=== PATIENT | male | born 1960 | race Caucasian/White ===

== ENCOUNTER 2018-04-28 19:13 | Emergency (ER) | payer SELFPAY ==
[~2018-04-28] VITALS: Ht 193 cm; Wt 78.0 kg
[2018-04-28] MEDS ORDERED: LIDOCAINE/EPINEPHR/TETRACAINE 3ML TP ONE (23:45)
[2018-04-28] MEDS ORDERED: BACITRACIN ZINC OINT UDPKT TOP ONE (23:45)
[2018-04-28] MEDS ORDERED: LIDOCAINE 1%/EPI 1:100,000 10 ML VIAL IJ ONE (23:45)
[2018-04-29] MEDS ORDERED: HYDROCODONE/ACETAMINOPHEN 5/325MG TABLET PO ONE (01:15)
[2018-04-29] MEDS ORDERED: IBUPROFEN 800MG TABLET PO ONE (01:15)
[2018-04-29 01:25] VITALS: BP 157/105
== END 2018-04-29 02:04 | disposition home or self-care (01) ==
LOC: ER 19:13
DX: L02.11 Cutaneous abscess of neck (principal); I10 Essential (primary) hypertension
CPT/HCPCS: 10060; 99284; J3490

== ENCOUNTER 2023-07-20 17:19 | Inpatient (IN) | payer OTHER ==
[~2023-07-20] VITALS: Ht 182.9 cm; Wt 78.5 kg
[2023-07-20 20:34] LABS: HEMATOCRIT. 27.3 % (42.0-52.0); HEMOGLOBIN. 8.4 g/dL (14.0-18.0); MEAN CORPUSCULAR HEMOGLOBIN 24.3 pg (28.0-32.0); MEAN CORPUSCULAR HGB CONC 30.9 g/dL (31.0-37.0); MEAN CORPUSCULAR VOLUME 78.9 fL (80.0-94.0); MEAN PLATELET VOLUME 6.8 fl (7.4-10.4); PLATELET 656 x1000/uL (130-400); RED BLOOD CELL COUNT 3.46 mill/uL (4.7-6.1); RED CELL DISTRIBUTION WIDTH 19.1 % (11.6-14.6); WHITE BLOOD COUNT 12.7 x1000/uL (4.5-11.0)
[2023-07-20 20:35] LABS: DIFFERENTIAL COMMENT 1
[2023-07-20 20:45] LABS: ALANINE AMINOTRANSFERASE 42 IU/L (10-49); ALBUMIN 4.1 g/dL (3.2-4.8); ASPARTATE AMINOTRANSFERASE 19 IU/L (<34); BILIRUBIN TOTAL 0.2 mg/dL (0.1-1.0); CALCIUM 9.1 mg/dL (8.7-10.4); CARBON DIOXIDE 21 mEq/L (21-32); CHLORIDE 105 mEq/L (98-107); CREATINE KINASE 82 IU/L (46-171); CREATININE 1.6 mg/dL (0.6-1.3); GLUCOSE 80 mg/dL (70-105); NUCLEATED RED BLOOD CELLS 1 /100 WBC; PLATELET ESTIMATE INCREASED; POTASSIUM 4.3 mEq/L (3.5-5.1); SODIUM 140 mEq/L (136-145); UREA NITROGEN BLOOD 47 mg/dL (9-23)
[2023-07-20 21:54] LABS: CLARITY URINE CLEAR (CLEAR); COLOR URINE YELLOW (YELLOW); GLUCOSE URINE NEGATIVE (NEGATIVE); KETONES URINE NEGATIVE (NEGATIVE); LEUKOCYTE ESTERASE URINE NEGATIVE (NEGATIVE); NITRITE URINE NEGATIVE (NEGATIVE); OCCULT BLOOD URINE TRACE (NEGATIVE); PH URINE 5.5 (4.5-8.0); PROTEIN URINE 1+ (NEGATIVE); SPECIFIC GRAVITY URINE 1.012 (1.005-1.030); UROBILINOGEN URINE 0.2 E.U./dL (0.2-1.0)
[2023-07-20] MEDS ORDERED: SODIUM CHLORIDE 0.9% 1,000 ML IV ONE (22:00)
[2023-07-20] MEDS ORDERED: CEFTRIAXONE 1GM PREMIX 50 ML IV NR (22:00)
[2023-07-20 22:06] LABS: BACTERIA URINE NONE SEEN; RBC URINE 0-2 /hpf (0-2); SQUAMOUS EPITHELIAL CELL URINE 1+ /lpf (RARE/1+); WBC URINE 0-2 /hpf (0-2)
[2023-07-20] MEDS ORDERED: ACETAMINOPHEN 325MG TABLET PO STA (22:43)
[2023-07-21] MEDS ORDERED: CLONIDINE 0.1MG TABLET PO PRN (02:30)
[2023-07-21] MEDS ORDERED: IBUPROFEN 600MG TABLET PO PRN (02:30)
[2023-07-21] MEDS ORDERED: ONDANSETRON HCL 4MG/2ML INJ IV PRN (02:30)
[2023-07-21] MEDS ORDERED: IPRATROPIUM/ALBUTEROL 0.5-3(2.5)MG/3ML NEB HHN PRN (02:30)
[2023-07-21] MEDS ORDERED: ACETAMINOPHEN 325MG TABLET PO PRN ×2 (02:30)
[2023-07-21] MEDS ORDERED: SODIUM CHLORIDE 0.45% 1,000 ML IV SCH ×2 (02:45→03:00)
[2023-07-21] MEDS ORDERED: KETOROLAC 30MG/ML VIAL IV STA (03:17)
[2023-07-21] MEDS ORDERED: ONDANSETRON HCL 4MG/2ML INJ IV STA (03:17)
[2023-07-21 04:41] LABS: *AMPHETAMINES SCREEN URINE NEGATIVE (NEGATIVE); *BARBITURATES SCREEN URINE NEGATIVE (NEGATIVE); *BENZODIAZEPINES SCREEN URINE NEGATIVE (NEGATIVE); *COCAINE SCREEN URINE NEGATIVE (NEGATIVE); CANNABINOID URINE SCREEN NEGATIVE (NEGATIVE); ECSTASY MDMA SCREEN URINE NEGATIVE (NEGATIVE); METHADONE URINE SCREEN Neg (NEGATIVE); OPIATES URINE SCREEN NEGATIVE (NEGATIVE); PHENCYCLIDINE URINE SCREEN NEGATIVE (NEGATIVE)
[2023-07-21 08:03] LABS: CREATINE KINASE 71 IU/L (46-171); CREATINE KINASE MB FRACTION 1.2 ng/mL (0.5-3.6); PHOSPHORUS 4.6 mg/dL (2.5-4.9); TROPONIN I HIGH SENSITIVITY 4 ng/L (3.0-53)
[2023-07-21 08:25] LABS: D-DIMER 19.67 mg/L FEU (<0.50); PROTHROMBIN TIME 11.2 sec (9.6-11.0)
[2023-07-21] MEDS ORDERED: ENOXAPARIN 40MG/0.4ML SYR SUBCUT SCH (09:00)
[2023-07-21 10:13] VITALS: BP 133/68; PULSE 80; RESP 16; TEMP 98.1
[2023-07-21 11:59] VITALS: BP 122/73; PULSE 78; RESP 18; TEMP 97.7
[2023-07-21 14:36] VITALS: BP 122/73; PULSE 78; TEMP 97.8; O2SAT 97
[2023-07-21 16:00] VITALS: BP 131/68; PULSE 88; RESP 18; TEMP 98.7
[2023-07-21 16:41] LABS: CREATINE KINASE 68 IU/L (46-171); CREATINE KINASE MB FRACTION 1.2 ng/mL (0.5-3.6)
[2023-07-21 16:43] LABS: TROPONIN I HIGH SENSITIVITY < 4 ng/L (3.0-53)
[2023-07-21] MEDS ORDERED: TAMSULOSIN HCL 0.4MG SR CAPSULE PO SCH ×2 (21:00)
[2023-07-21] MEDS ORDERED: FAMOTIDINE 20MG TABLET PO SCH (21:00)
== END 2023-07-21 16:51 | disposition home or self-care (01) | DRG 469 ==
LOC: ER 17:19 → 6WST 23:26 → ER 07-21 01:52
PROVIDERS: ADMIT Hospitalist; ATTEND Hospitalist
DX: N17.9 Acute kidney failure, unspecified (principal); C79.51 Secondary malignant neoplasm of bone; C61 Malignant neoplasm of prostate; Q78.2 Osteopetrosis; N40.0 Benign prostatic hyperplasia without lower urinary tract symptoms; Q64.4 Malformation of urachus; I10 Essential (primary) hypertension
CPT/HCPCS: 36415; 71045; 74176; 80053; 80305; 80320; 81003; 82550; 82553; 83605; 83735; 84100; 84145; 84484; 85025; 85379; 99285; J0696; J1650; J1885; J2405; J7030; G0480